=== PATIENT | male | born 1995 | race Caucasian/White ===

== ENCOUNTER 2021-07-08 23:46 | Emergency (ER) | payer BC, OTHER ==
[~2021-07-08] VITALS: Ht 170.2 cm; Wt 72.7 kg
[2021-07-09 00:32] VITALS: BP 120/74
== END 2021-07-09 00:34 | disposition home or self-care (01) ==
LOC: ER 23:47
DX: Z04.1 Encounter for examination and observation following transport accident (principal); M25.511 Pain in right shoulder; R51.9 Headache, unspecified; Z98.890 Other specified postprocedural states; V87.7XXA Person injured in collision between other specified motor vehicles (traffic), initial encounter; Y93.89 Activity, other specified; Y92.89 Other specified places as the place of occurrence of the external cause; Y99.8 Other external cause status
CPT/HCPCS: 99281; 99283

== ENCOUNTER 2022-07-25 20:10 | Emergency (ER) | payer OTHER ==
[~2022-07-25] VITALS: Ht 175.3 cm; Wt 72.7 kg
[2022-07-25 20:15] VITALS: BP 151/110
[2022-07-25] MEDS ORDERED: TETanus/Pertussis (Acell)/Diphther VAC/PF (Tdap-Adult) 0.5ml syringe IMVAC ONE (20:55)
[2022-07-25] MEDS ORDERED: LIDOcaine 1% W/epiNEPHrine 1:100,000 20ml vial SQ ONE (20:55)
[2022-07-25] MEDS ORDERED: CEPH500C81 PO (21:02)
[2022-07-25] MEDS ORDERED: ibuprofen 200mg tablet PO ONE (21:05)
[2022-07-25] MEDS ORDERED: cephalexin 500mg capsule PO ONE (21:05)
== END 2022-07-25 23:12 | disposition home or self-care (01) ==
LOC: ER 20:11
DX: S01.111A Laceration without foreign body of right eyelid and periocular area, initial encounter (principal); Z87.81 Personal history of (healed) traumatic fracture; Y00.XXXA Assault by blunt object, initial encounter; Y93.89 Activity, other specified; Y92.89 Other specified places as the place of occurrence of the external cause; Y99.8 Other external cause status
CPT/HCPCS: 70450; 70486; 90471; 90715; 99285